=== PATIENT | female | born 1985 | race Two or more races ===

== ENCOUNTER 2017-08-04 10:37 | Emergency (ER) | payer MEDICAID ==
[2017-08-04] MEDS ORDERED: HYDROmorphone 0.5 MG/0.5 ML Syringe IVPUSH ONE (11:34)
[2017-08-04] MEDS ORDERED: Famotidine 20 MG/2 ML SDV IVPUSH ONE (11:34)
[2017-08-04] MEDS ORDERED: Ondansetron 4 MG/2 ML SDV IVPUSH ONE (11:34)
[2017-08-04] MEDS ORDERED: Sodium Chloride 0.9% 10 ML Syringe FLUSH PRN (11:34)
[2017-08-04] MEDS ORDERED: Sodium Chloride 0.9% 1,000 ML IV SCH (11:45)
--- NOTE | 2017-08-04 13:30 | EDM.PDOC ---
ED HPI GENERAL MEDICAL PROBLEM - General Chief Complaint: Abdominal Pain Stated Complaint: VOMITING AND DIARRHEA Time Seen by Provider: 08/04/17 11:27 Source of Information: Reports: Patient, RN Notes Reviewed - History of Present Illness INITIAL COMMENTS - FREE TEXT/NARRATIVE: Female with sudden onset nausea, vomiting, diarrhea, abdominal pain with a lot of upper abdominal cramping about 5-6 hours ago. She continues to be very nauseated and continues to have a lot of upper mid abdominal cramping without radiation. She did feel fine yesterday and last evening. She's had some chills but no fever. No chest pain or difficulty breathing. She still does have her appendix and gallbladder. 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 Denies: Hematochezia Musculoskeletal: Reports: No Symptoms Skin: Reports: No Symptoms Neurological: Reports: Dizziness (Mild) ED EXAM, GI/ABD - Physical Exam Exam: See Below General Appearance: Alert, Moderate Distress Throat/Mouth: Normal Inspection, Normal Oropharynx Head: No: Facial Swelling Neck: Supple, Full Range of Motion Respiratory/Chest: No Respiratory Distress, Lungs Clear, Normal Breath Sounds Cardiovascular: Regular Rate, Rhythm GI/Abdominal Exam: Soft, Tender (Upper mid abdomen, lower abdomen nontender, right upper quadrant nontender). No: Guarding Back Exam: No: CVA Tenderness (L), CVA Tenderness (R) Extremities: Normal Inspection, Normal Range of Motion Neurological: Alert, Oriented, No Motor/Sensory Deficits Skin Exam: Warm, Dry, Normal Color Course - Vital Signs Last Recorded V/S: Last Vital Signs Temp 96.7 F 08/04/17 10:55 Pulse 84 08/04/17 10:55 Resp 18 08/04/17 10:55 BP 130/82 08/04/17 10:55 Pulse Ox 99 08/04/17 10:55 - Orders/Labs/Meds Orders: Active Orders 24 hr Category Date Time Status Peripheral IV Care [RC] . DIRECTED Care 08/04/17 11:35 Active Peripheral IV Insertion Adult [OM.PC] Stat Oth 08/04/17 11:34 Ordered Labs: Laboratory Tests 08/04/17 Range/Units 11:19 WBC 7.91 (3.98-10.04) K/mm3 RBC 4.54 (3.98-5.22) M/mm3 Hgb 11.5 (11.2-15.7) gm/L Hct 36.7 (34.1-44.9) % MCV 80.8 (79.4-94.8) fl MCH 25.3 L (25.6-32.2) pg MCHC 31.3 L (32.2-35.5) g/dl RDW Std Deviation 45.6 (36.4-46.3) fL Plt Count 366 (182-369) K/mm3 MPV 12.3 (9.4-12.3) fl Neut % (Auto) 79.8 H (34.0-71.1) % Lymph % (Auto) 14.5 L (19.3-51.7) % [place] % (Auto) 4.6 L (4.7-12.5) % Eos % (Auto) 0.5 L (0.7-5.8) Baso % (Auto) 0.3 (0.1-1.2) % Neut # (Auto) 6.32 H (1.56-6.13) K/mm3 Lymph # (Auto) 1.15 L (1.18-3.74) K/mm3 [place] # (Auto) 0.36 (0.24-0.36) K/mm3 Eos # (Auto) 0.04 (0.04-0.36) K/mm3 Baso # (Auto) 0.02 (0.01-0.08) K/mm3 Meds: Medications Discontinued Medications Generic Name Dose Route Start Last Admin Trade Name Freq PRN Reason Stop Dose Admin Famotidine 20 mg 08/04/17 11:34 08/04/17 11:48 Pepcid IVPUSH 08/04/17 11:35 20 mg ONETIME ONE Administration Hydromorphone HCl 0.5 mg 08/04/17 11:34 08/04/17 11:50 Dilaudid IVPUSH 08/04/17 11:35 0.5 mg ONETIME ONE Administration Sodium Chloride 1,000 mls @ 999 mls/hr 08/04/17 11:45 08/04/17 11:45 Normal Saline IV 999 mls/hr ONETIME ANGELA Administration Ondansetron HCl 4 mg 08/04/17 11:34 08/04/17 11:46 Zofran IVPUSH 08/04/17 11:35 4 mg ONETIME ONE Administration Sodium Chloride 10 ml 08/04/17 11:34 08/04/17 11:51 Saline Flush FLUSH 10 ml ASDIRECTED PRN Administration Keep Vein Open - Re-Assessments/Exams Free Text/Narrative Re-Assessment/Exam: 08/04/17 14:38 White blood count is normal. Feeling much better after 1 L of normal saline, IV Zofran and Pepcid. Departure - Departure Time of Disposition: 13:27 Disposition: Home, Self-Care 01 Condition: Fair Clinical Impression: Abdominal pain Qualifiers: Abdominal location: generalized Qualified Code(s): R10.84 - Generalized abdominal pain Diarrhea Qualifiers: Diarrhea type: unspecified type Qualified Code(s): R19.7 - Diarrhea, unspecified Vomiting Qualifiers: Vomiting type: unspecified Vomiting Intractability: non-intractable Nausea presence: with nausea Qualified Code(s): R11.2 - Nausea with vomiting, unspecified - Discharge Information Prescriptions: Ondansetron [Zofran ODT] 4 mg PO Q6H PRN #7 tab.dis PRN Reason: Nausea/Vomiting Instructions: Diarrhea, Adult, Nausea and Vomiting, Adult, [id number], Abdominal Pain, Adult, [id number] Referrals: Debra Baltazar, COMPRESSION MOLDING MACHINE SETTER [Primary Care Provider] - Forms: ED Department Discharge, ED Return to Work/School Form Additional Instructions: Clear liquids only until late this evening, then very careful bland diet slowly as tolerated, Zofran nausea medicine if needed for any further nausea or vomiting, tylenol if needed for pain. follow-up clinic if not much better within 1-2 days as expected. - My Orders Last 24 Hours: My Active Orders 08/04/17 11:34 Peripheral IV Insertion Adult [OM.PC] Stat 08/04/17 11:35 Peripheral IV Care [RC] . DIRECTED - Assessment/Plan Last 24 Hours: My Active Orders 08/04/17 11:34 Peripheral IV Insertion Adult [OM.PC] Stat 08/04/17 11:35 Peripheral IV Care [RC] . DIRECTED
== END 2017-08-04 13:45 | disposition home or self-care (01) ==
LOC: JD.ED 10:37
DX: R10.10 Upper abdominal pain, unspecified (principal); R11.2 Nausea with vomiting, unspecified; R19.7 Diarrhea, unspecified
CPT/HCPCS: 36415; 85025; 96361; 96374; 96375; 99284; J1170; J2405; J7040; J7050

== ENCOUNTER 2021-03-04 19:13 | Emergency (ER) | payer BC, MEDICAID ==
[2021-03-04] MEDS ORDERED: Sodium Chloride 0.9% 10 ML Syringe FLUSH PRN (19:25)
--- NOTE | 2021-03-04 19:36 | EDM.PDOC ---
ED HPI GENERAL MEDICAL PROBLEM - General Chief Complaint: Chest Pain Stated Complaint: CHEST PAIN Time Seen by Provider: 03/04/21 19:24 Source of Information: Reports: Patient, RN Notes Reviewed History Limitations: Reports: No Limitations - History of Present Illness INITIAL COMMENTS - FREE TEXT/NARRATIVE: Patient is a 35-year-old female who presents to the ER for the evaluation of her left-sided chest pain. Patient states that this started roughly 5 hours prior to arrival to the ER, she states that the pain is very sharp and stabbing in nature, in her left mid chest, and doesn't seem to be getting much better. She states that it does seem to be worsened by breathing, and movement, and palpation. She took 2 baby aspirin at home for pain management. States that she has a history of atrial fibrillation, roughly 15 years ago, but this has since resolved and she is not on any medications for this. She denies any other cardiac history, pulmonary history, or other medical issues. She states she has not been sick recently, she has had no fevers or chills, cough or shortness of breath, nausea/vomiting/diarrhea. 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 ED EXAM, GENERAL - Physical Exam Exam: See Below Exam Limited By: No Limitations General Appearance: Alert, WD/WN, No Apparent Distress Respiratory/Chest: No Respiratory Distress, Lungs Clear, Normal Breath Sounds, No Accessory Muscle Use, Other (Left chest is tender to palpation to about the 3-4th distribution of rib.) Cardiovascular: Normal Peripheral Pulses, Regular Rate, Rhythm, No Edema Extremities: Normal Inspection, Normal Capillary Refill Neurological: Alert, Oriented, Normal Cognition, No Motor/Sensory Deficits Psychiatric: Normal Affect, Normal Mood Skin Exam: Warm, Dry, Intact, Normal Color, No Rash #1 Interpretation EKG Date: 03/04/21 Time: 19:24 Rhythm: NSR Rate (Beats/Min): 83 [place]: Normal P-Wave: Present QRS: Normal ST-T: Normal QT: Normal Comparison: NA - No Prior EKG EKG Interpretation Comments: No obvious ischemia or acute ST changes noted, reviewed by myself and Dr. Olivas Course - Vital Signs Last Recorded V/S: Last Vital Signs Temp 97.6 F 03/04/21 19:23 Pulse 91 03/04/21 19:51 Resp 18 03/04/21 19:51 BP 112/73 03/04/21 19:51 Pulse Ox 97 03/04/21 19:51 - Orders/Labs/Meds Orders: Active Orders 24 hr Category Date Time Status Peripheral IV Care [RC] . DIRECTED Care 03/04/21 19:26 Active Sodium Chloride 0.9% [Saline Flush] Med 03/04/21 19:25 Active 10 ml FLUSH ASDIRECTED PRN Peripheral IV Insertion Adult [OM.PC] Stat Oth 03/04/21 19:26 Ordered Medication Orders Sodium Chloride (Sodium Chloride 0.9% 10 Ml Syringe) 10 ml FLUSH ASDIRECTED PRN PRN Reason: Keep Vein Open Labs: Laboratory Tests 03/04/21 03/04/21 03/04/21 Range/Units 19:41 19:41 19:41 WBC 5.49 (3.98-10.04) K/mm3 RBC 4.09 (3.98-5.22) M/mm3 Hgb 10.6 L (11.2-15.7) gm/dl Hct 33.6 L (34.1-44.9) % MCV 82.2 (79.4-94.8) fl MCH 25.9 (25.6-32.2) pg MCHC 31.5 L (32.2-35.5) g/dl RDW Std Deviation 45.2 (36.4-46.3) fL Plt Count 333 (182-369) K/mm3 MPV 11.9 (9.4-12.3) fl Neut % (Auto) 56.1 (34.0-71.1) % Lymph % (Auto) 32.6 (19.3-51.7) % [place] % (Auto) 9.1 (4.7-12.5) % Eos % (Auto) 1.6 (0.7-5.8) Baso % (Auto) 0.4 (0.1-1.2) % Neut # (Auto) 3.08 (1.56-6.13) K/mm3 Lymph # (Auto) 1.79 (1.18-3.74) K/mm3 [place] # (Auto) 0.50 H (0.24-0.36) K/mm3 Eos # (Auto) 0.09 (0.04-0.36) K/mm3 Baso # (Auto) 0.02 (0.01-0.08) K/mm3 PT 10.9 (9.7-12.0) SECONDS INR 1.02 APTT 25.4 (21.7-31.4) SECONDS D-Dimer, Quantitative 0.37 (0.19-0.50) mg/L Sodium 144 (136-145) mEq/L Potassium 3.5 (3.5-5.1) mEq/L Chloride 108 H (98-107) mEq/L Carbon Dioxide 25 (21-32) mEq/L Anion Gap 14.5 (5-15) BUN 11 (7-18) mg/dL Creatinine 0.9 (0.55-1.02) mg/dL Est Cr Clr Drug Dosing 69.66 mL/min Estimated GFR (MDRD) > 60 (>60) mL/min BUN/Creatinine Ratio 12.2 L (14-18) Glucose 114 H (70-99) mg/dL Calcium 8.3 L (8.5-10.1) mg/dL Magnesium 1.8 (1.8-2.4) mg/dL Total Bilirubin 0.2 (0.2-1.0) mg/dL AST 11 L (15-37) U/L ALT 14 (14-59) U/L Alkaline Phosphatase 59 (46-116) U/L Troponin I < 0.017 (0.00-0.056) ng/mL NT-Pro-B Natriuret Pep (0-125) pg/mL Total Protein 6.8 (6.4-8.2) g/dl Albumin 3.2 L (3.4-5.0) g/dl Globulin 3.6 gm/dL Albumin/Globulin Ratio 0.9 L (1-2) 03/04/21 Range/Units 19:41 WBC (3.98-10.04) K/mm3 RBC (3.98-5.22) M/mm3 Hgb (11.2-15.7) gm/dl Hct (34.1-44.9) % MCV (79.4-94.8) fl MCH (25.6-32.2) pg MCHC (32.2-35.5) g/dl RDW Std Deviation (36.4-46.3) fL Plt Count (182-369) K/mm3 MPV (9.4-12.3) fl Neut % (Auto) (34.0-71.1) % Lymph % (Auto) (19.3-51.7) % [place] % (Auto) (4.7-12.5) % Eos % (Auto) (0.7-5.8) Baso % (Auto) (0.1-1.2) % Neut # (Auto) (1.56-6.13) K/mm3 Lymph # (Auto) (1.18-3.74) K/mm3 [place] # (Auto) (0.24-0.36) K/mm3 Eos # (Auto) (0.04-0.36) K/mm3 Baso # (Auto) (0.01-0.08) K/mm3 PT (9.7-12.0) SECONDS INR APTT (21.7-31.4) SECONDS D-Dimer, Quantitative (0.19-0.50) mg/L Sodium (136-145) mEq/L Potassium (3.5-5.1) mEq/L Chloride (98-107) mEq/L Carbon Dioxide (21-32) mEq/L Anion Gap (5-15) BUN (7-18) mg/dL Creatinine (0.55-1.02) mg/dL Est Cr Clr Drug Dosing mL/min Estimated GFR (MDRD) (>60) mL/min BUN/Creatinine Ratio (14-18) Glucose (70-99) mg/dL Calcium (8.5-10.1) mg/dL Magnesium (1.8-2.4) mg/dL Total Bilirubin (0.2-1.0) mg/dL AST (15-37) U/L ALT (14-59) U/L Alkaline Phosphatase (46-116) U/L Troponin I (0.00-0.056) ng/mL NT-Pro-B Natriuret Pep 16 (0-125) pg/mL Total Protein (6.4-8.2) g/dl Albumin (3.4-5.0) g/dl Globulin gm/dL Albumin/Globulin Ratio (1-2) Meds: Medications Generic Name Dose Route Start Last Admin Trade Name Freq PRN Reason Stop Dose Admin Sodium Chloride 10 ml 03/04/21 19:25 Sodium Chloride 0.9% 10 Ml Syringe FLUSH ASDIRECTED PRN Keep Vein Open - Re-Assessments/Exams Free Text/Narrative Re-Assessment/Exam: 03/04/21 19:55 The patient presents to the ER for her left-sided chest pain. EKG done at time of triage demonstrates normal sinus rhythm with no acute ST change or abnormalities. Basic labs will be obtained for evaluation, along with a chest x-ray. 03/04/21 20:39 Laboratory evaluation is unremarkable, troponin is undetectably low, D-dimer is within normal limits, she is not suffering from a heart attack, nor does she have a PE at today's visit by lab standards. Likely that her pain could be musculoskeletal, we will give her a prescription for Norflex if she would choose , and tell her to try to utilize ibuprofen as well for ongoing management. Patient's chest x-ray was also without acute findings. Departure - Departure Time of Disposition: 20:40 Disposition: Home, Self-Care 01 Condition: Good Clinical Impression: Left-sided chest wall pain Instructions: Chest Wall Pain, [id number] Referrals: PCP,None [Primary Care Provider] - Forms: ED Department Discharge Additional Instructions: You were evaluated in the ER today for your chest pain. Your EKG, chest x-ray, and laboratory evaluation are all unremarkable. The chest pain is thought likely due to musculoskeletal etiology. Recommend you use daily 600 mg ibuprofen every 6 hours for ongoing chest pain management. Do not exceed more than 3200 mg ibuprofen in a 24-hour time span. Please follow-up with your regular provider for ongoing management of your health. Please return to the ER at any time if symptoms change or worsen. Sepsis Event Note (ED) - Evaluation Sepsis Screening Result: No Definite Risk - Focused Exam Vital Signs: Vital Signs Temp Pulse Resp BP Pulse Ox 03/04/21 19:51 91 18 112/73 97 03/04/21 19:23 97.6 F 92 18 124/83 96 - My Orders Last 24 Hours: My Active Orders 03/04/21 19:25 Sodium Chloride 0.9% [Saline Flush] 10 ml FLUSH ASDIRECTED PRN 03/04/21 19:26 Peripheral IV Care [RC] . DIRECTED Peripheral IV Insertion Adult [OM.PC] Stat - Assessment/Plan Last 24 Hours: My Active Orders 03/04/21 19:25 Sodium Chloride 0.9% [Saline Flush] 10 ml FLUSH ASDIRECTED PRN 03/04/21 19:26 Peripheral IV Care [RC] . DIRECTED Peripheral IV Insertion Adult [OM.PC] Stat
--- NOTE | 2021-03-04 20:04 | CR ---
Chest: Portable view of the chest was obtained. Comparison: No prior chest imaging is available. Heart size and mediastinum are normal. Lungs are clear with no acute parenchymal change. Bony structure shows nothing acute. Impression: 1. Nothing acute is appreciated on portable chest x-ray. Diagnostic code #1
== END 2021-03-04 20:55 | disposition home or self-care (01) ==
LOC: JD.ED 19:13
DX: R07.89 Other chest pain (principal); I48.91 Unspecified atrial fibrillation
CPT/HCPCS: 36415; 71045; 71045-26; 80053; 83735; 83880; 84484; 85025; 85379; 85610; 85730; 93005; 93010; 99283; 99285-25

== ENCOUNTER 2021-06-05 00:01 | Day surgery (SDC) | payer BC, MEDICAID ==
[2021-06-05] MEDS ORDERED: HYDROmorphone 0.5 MG/0.5 ML Syringe IVPUSH ONE (02:46)
[2021-06-05] MEDS ORDERED: Ondansetron 4 MG/2 ML SDV IVPUSH ONE (02:46)
--- NOTE | 2021-06-05 02:49 | EDM.PDOC ---
ED HPI GENERAL MEDICAL PROBLEM - General Chief Complaint: Abdominal Pain Stated Complaint: BACK/ABD PAIN Time Seen by Provider: 06/05/21 02:23 Source of Information: Reports: Patient History Limitations: Reports: No Limitations - History of Present Illness INITIAL COMMENTS - FREE TEXT/NARRATIVE: Ms. Bazan is a very pleasant 36-year-old woman who now presents the ED stating that she developed sudden-onset upper right and mid back pain around 2100 last night. She laid down, and the pain radiated to her right upper quadrant. She states that her pain is made better if she moves. She has not had any vomiting. No prior similar symptoms. The patient did not take any [id number] or home remedies prior to coming to the ED. The patient states that she ate dinner, consisting of a chicken [employer] sandwich around 18:00, then some dessert around 20:00. She has not had anything to eat since. Here in the ED, the patient's initial BP was found to be slightly elevated at 124/101, otherwise, she is hemodynamically stable, afebrile, saturating 100% on room air. She appears to be comfortable, in no acute distress, although she states that her pain has not significantly improved since its onset. Prior to last night, the patient denies having a recent fever, chills, sore throat, ear pain, nasal or sinus congestion, cough, dyspnea, chest pain, palpitations, nausea, vomiting, constipation, diarrhea, abdominal pain, urinary symptoms, recent weight gain or weight loss, recent bloody bowel movements or black bowel movements, recent joint aches, headaches, or rashes. The patient does not have a PCP. 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 Dayami Stoner. She has received 2 COVID vaccinations, although no influenza vaccination this season. Right Upper Abdomen Pain Score (Numeric/FACES): 7 - Related Data Allergies Allergy/AdvReac Type Severity Reaction Status Date / Time No Known Allergies Allergy Verified 06/05/21 00:10 Home Meds: Home Meds oxyCODONE 5 mg PO Q4H PRN #15 tab 06/05/21 [Rx] Past Medical History - Past Health History Medical/Surgical History: Denies Medical/Surgical History - Infectious Disease History Infectious Disease History: Reports: Chicken Pox Social & Family History - Tobacco Use Tobacco Use Status *Q: Never Tobacco User Second Hand Smoke Exposure: No - Caffeine Use Caffeine Use: Reports: Coffee - Alcohol Use Alcohol Use History: Yes Alcohol Use Frequency: Socially - Recreational Drug Use Recreational Drug Use: No - Living Situation & Occupation Living situation: Reports: Single, with Family 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 ED EXAM, GI/ABD - Physical Exam Exam: See Below Exam Limited By: No Limitations General Appearance: Alert, WD/WN, No Apparent Distress Eyes: Bilateral: Normal Appearance, EOMI Ears: Normal External Exam, Hearing Grossly Normal Nose: Normal Inspection Throat/Mouth: Normal Inspection, Normal Lips, Normal Voice, No Airway Compromise Head: Atraumatic, Normocephalic Neck: Normal Inspection, Full Range of Motion Respiratory/Chest: No Respiratory Distress, Lungs Clear, Normal Breath Sounds, No Accessory Muscle Use Cardiovascular: Normal Peripheral Pulses, Regular Rate, Rhythm, No Edema, No Gallop, No JVD, No Murmur, No Rub GI/Abdominal Exam: Normal Bowel Sounds, Soft, No Organomegaly, No Distention, No Abnormal Bruit, No Mass, Tender (Considerable, right upper quadrant only. Nontender elsewhere. True Cortez sign present.) Back Exam: Normal Inspection, Full Range of Motion. No: CVA Tenderness (L), CVA Tenderness (R) Extremities: Normal Inspection, Normal Range of Motion, No Pedal Edema, Normal Capillary Refill Neurological: Alert, Oriented, Normal Cognition, No Motor/Sensory Deficits Psychiatric: Normal Affect Skin Exam: Warm, Dry, Intact, Normal Color, No Rash Course - Vital Signs Last Recorded V/S: Last Vital Signs Temp 36.1 C 06/05/21 00:08 Pulse 85 06/05/21 00:08 Resp 16 06/05/21 00:08 BP 124/101 H 06/05/21 00:08 Pulse Ox 100 06/05/21 00:08 - Orders/Labs/Meds Orders: Active Orders 24 hr Category Date Time Status Sodium Chloride 0.9% [Normal Saline] 1,000 ml Med 06/05/21 03:00 Active IV ASDIRECTED Medication Orders Sodium Chloride (Normal Saline) 1,000 mls @ 150 mls/hr IV ASDIRECTED ANGELA Last Admin: 06/05/21 02:53 Dose: 150 mls/hr Documented by: PRATEEK Labs: Laboratory Tests 06/05/21 06/05/21 06/05/21 Range/Units 01:05 01:05 02:59 WBC 6.99 (3.98-10.04) K/mm3 RBC 4.05 (3.98-5.22) M/mm3 Hgb 10.3 L (11.2-15.7) gm/dl Hct 33.8 L (34.1-44.9) % MCV 83.5 (79.4-94.8) fl MCH 25.4 L (25.6-32.2) pg MCHC 30.5 L (32.2-35.5) g/dl RDW Std Deviation 46.0 (36.4-46.3) fL Plt Count 369 (182-369) K/mm3 MPV 11.4 (9.4-12.3) fl Neut % (Auto) 66.1 (34.0-71.1) % Lymph % (Auto) 24.6 (19.3-51.7) % [place] % (Auto) 6.9 (4.7-12.5) % Eos % (Auto) 1.7 (0.7-5.8) Baso % (Auto) 0.4 (0.1-1.2) % Neut # (Auto) 4.62 (1.56-6.13) K/mm3 Lymph # (Auto) 1.72 (1.18-3.74) K/mm3 [place] # (Auto) 0.48 H (0.24-0.36) K/mm3 Eos # (Auto) 0.12 (0.04-0.36) K/mm3 Baso # (Auto) 0.03 (0.01-0.08) K/mm3 Sodium 140 (136-145) mEq/L Potassium 3.7 (3.5-5.1) mEq/L Chloride 106 (98-107) mEq/L Carbon Dioxide 27 (21-32) mEq/L Anion Gap 10.7 (5-15) BUN 14 (7-18) mg/dL Creatinine 0.8 (0.55-1.02) mg/dL Est Cr Clr Drug Dosing TNP Estimated GFR (MDRD) > 60 (>60) mL/min BUN/Creatinine Ratio 17.5 (14-18) Glucose 96 (70-99) mg/dL Calcium 8.9 (8.5-10.1) mg/dL Total Bilirubin 0.1 L (0.2-1.0) mg/dL AST 17 (15-37) U/L ALT 10 L (14-59) U/L Alkaline Phosphatase 74 (46-116) U/L Total Protein 6.3 L (6.4-8.2) g/dl Albumin 3.0 L (3.4-5.0) g/dl Globulin 3.3 gm/dL Albumin/Globulin Ratio 0.9 L (1-2) Lipase 96 (73-393) U/L SARS-CoV-2 RNA (VALERIA) Negative (NEGATIVE) Meds: Medications Generic Name Dose Route Start Last Admin Trade Name Freq PRN Reason Stop Dose Admin Sodium Chloride 1,000 mls @ 150 mls/hr 06/05/21 03:00 06/05/21 02:53 Normal Saline IV 150 mls/hr ASDIRECTED ANGELA Administration Discontinued Medications Generic Name Dose Route Start Last Admin Trade Name Freq PRN Reason Stop Dose Admin Hydromorphone HCl 0.5 mg 06/05/21 02:46 06/05/21 02:53 Hydromorphone 0.5 Mg/0.5 Ml Syringe IVPUSH 06/05/21 02:47 0.5 mg ONETIME ONE Administration Ceftriaxone Sodium 1 gm/ 100 mls @ 200 mls/hr 06/05/21 06:02 06/05/21 06:11 Sodium Chloride IV 06/05/21 06:31 200 mls/hr ONETIME STA Administration Ondansetron HCl 4 mg 06/05/21 02:46 06/05/21 02:53 Ondansetron 4 Mg/2 Ml Sdv IVPUSH 06/05/21 02:47 4 mg ONETIME ONE Administration - Re-Assessments/Exams Free Text/Narrative Re-Assessment/Exam: 06/05/21 02:47 The patient's history and physical examination are entirely consistent with acute cholecystitis. A CBC, CMP, and lipase level were obtained at triage. I have ordered an ultrasound of the right upper quadrant, to be followed by a CT of the abdomen and pelvis with oral and IV contrast. In the event that she needs to go to the OR, I have also added a swab for the SARS-CoV-2 virus. In the meantime, the patient will be treated with IV Dilaudid, IV Zofran, and IV fluid. The patient's CBC is remarkable for an H/H slightly depressed at 10.3/33.8, with the remainder of her CBC being unremarkable. Her CMP is unremarkable. Her lipase level is within normal limits at 96. 06/05/21 04:41 Ultrasound of the right upper quadrant is read by [facility] as "Cholelithiasis without cholecystitis. 1.4 cm stone lodged in the neck of the gallbladder." The patient's swab for the SARS-CoV-2 virus is negative. 06/05/21 05:14 CT of the abdomen and pelvis with oral and IV contrast is read by [facility] as "There is mild pericholecystic edema, suspicious for cholecystitis. Gallstone is not identified on this examination and is likely radiolucent." 06/05/21 05:23 Test results discussed with the patient. As above, the patient has cholecystitis due to cholelithiasis. She will need to undergo a cholecystectomy, however, no beds are currently available at this facility. A bed may open up later today. My plan is to contact Dr. Torres around 06:00 to see if you would like to proceed with same-day surgery, or if we need to look to transfer her. I do not believe that she needs emergent antibiotics, although I will ask him at 06:00. The patient declined an offer for additional pain medication at this time. 06/05/21 06:[address] Torres at 06:00. He will come by the ED to evaluate the patient this morning, with the hope of being able to take her to the operating room today. In the meantime, he requested that I give the patient IV Rocephin. 06/05/21 08:[address] Torres is evaluating the patient at this time. Departure - Departure Time of Disposition: 09:15 Disposition: DC/Tfer to [facility] Clinical Impression: Acute cholecystitis - Discharge Information *PRESCRIPTION DRUG MONITORING PROGRAM REVIEWED*: Not Applicable *COPY OF PRESCRIPTION DRUG MONITORING REPORT IN PATIENT FERNANDO: Not Applicable Sepsis Event Note (ED) - Evaluation Sepsis Screening Result: No Definite Risk - Focused Exam Vital Signs: Vital Signs Temp Pulse Resp BP Pulse Ox 06/05/21 00:08 36.1 C 85 16 124/101 H 100 - My Orders Last 24 Hours: My Active Orders 06/05/21 03:00 Sodium Chloride 0.9% [Normal Saline] 1,000 ml IV ASDIRECTED - Assessment/Plan Last 24 Hours: My Active Orders 06/05/21 03:00 Sodium Chloride 0.9% [Normal Saline] 1,000 ml IV ASDIRECTED
[2021-06-05] MEDS ORDERED: Sodium Chloride 0.9% 1,000 ML IV SCH (03:00)
[2021-06-05] MEDS ORDERED: cefTRIAXone 1 GM in Sodium Chloride 0.9% 100 ML IV STA (06:02)
--- NOTE | 2021-06-05 07:18 | US ---
Limited abdominal ultrasound: Multiple real-time images were obtained of the upper right abdomen. Comparison: No prior abdominal imaging is available. Findings: Liver shows no focal abnormality. Visualized portions of the pancreas are within normal limits. Gallbladder contains a single large gallstone within the gallbladder neck measuring 2.2 cm. Gallbladder wall is slightly prominent. Common bile duct measures at the upper limits of normal at 7.0 cm. Right kidney shows no hydronephrosis or mass and has a length of 11.5 cm. Main portal vein shows normal hepatopedal flow. Impression: 1. Single 2.2 cm gallstone within the gallbladder neck. Gallbladder wall is slightly prominent. Common bile duct measures at the upper limits of normal at 7 mm. Please correlate if patient has symptoms of acute cholecystitis. 2. Other portions of the right upper quadrant abdominal ultrasound are unremarkable. 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
--- NOTE | 2021-06-05 07:21 | CT ---
CT abdomen and pelvis Technique: Multiple axial sections were obtained from above the dome of the diaphragm inferiorly to the pubic symphysis. Intravenous and oral contrast was utilized. Delayed images were obtained through the bladder. Reconstructed coronal and sagittal images were obtained. Comparison: Limited abdominal ultrasound performed earlier on the same day (4:00 AM). Findings: Visualized lung bases show nothing acute. Liver shows no focal abnormality. Gallbladder does not show previous gallstone on this exam. Questionable fluid around the gallbladder is possible. Spleen size is normal. Adrenal glands show no nodule. Pancreas is within normal limits. Kidneys show symmetric contrast enhancement without hydronephrosis or mass. Abdominal aorta shows no aneurysm. No retroperitoneal adenopathy or mesenteric abnormalities are seen. Appendix is seen which is normal. No pelvic mass or adenopathy is seen. Delayed images show contrast within the distal ureters and within the bladder. No free fluid or inflammatory change is seen. Bone window settings were reviewed which show moderate disc space narrowing at L2-3 with anterior osteophytes. Scoliosis is also noted within the spine. No acute osseous finding is seen. Impression: 1. Possible fluid around the gallbladder. Given ultrasound findings, findings are suspicious for acute cholecystitis if patient has correlating symptoms. 2. Other findings believed to be chronic as described above. Diagnostic code #3 I agree with preliminary report from [facility], finalized on 06/05/21, 6:03 AM RN REHAB, code 2
--- NOTE | 2021-06-05 08:36 | PCM.PREANE ---
Preanesthetic Assessment - Procedure Proposed Procedure: Laparoscopic Cholecystectomy - Anesthesia/Transfusion/Family Hx Anesthesia History: Prior Anesthesia Without Reaction Family History of Anesthesia Reaction: No Transfusion History: No Prior Transfusion(s) Intubation History: Unknown - Review of Systems General: No Symptoms Pulmonary: No Symptoms Cardiovascular: No Symptoms Gastrointestinal: No Symptoms (GERD with gall bladder disease), Diarrhea (with oral contrast) Neurological: No Symptoms Other: Reports: Depression, Anxiety - Physical Assessment NPO Status Date: 06/05/21 NPO Status Time: 03:00 (oral contrast) Vital Signs: Last Vital Signs Temp 36.1 C 06/05/21 00:08 Pulse 85 06/05/21 00:08 Resp 16 06/05/21 00:08 BP 124/101 H 06/05/21 00:08 Pulse Ox 100 06/05/21 00:08 Height: 1.57 m Weight: 90.718 kg ASA Class: 3 Mental Status: Alert & Oriented x3 Airway Class: Mallampati = 2 Dentition: Reports: Normal Dentition, Caries Thyro-Mental Finger Breadths: 3 Mouth Opening Finger Breadths: 3 ROM/Head Extension: Full Lungs: Clear to Auscultation, Normal Respiratory Effort Cardiovascular: Regular Rate, Regular Rhythm, No Murmurs - Lab Values: Laboratory Last Values WBC 6.99 K/mm3 (3.98-10.04) 06/05/21 01:05 RBC 4.05 M/mm3 (3.98-5.22) 06/05/21 01:05 Hgb 10.3 gm/dl (11.2-15.7) L 06/05/21 01:05 Hct 33.8 % (34.1-44.9) L 06/05/21 01:05 MCV 83.5 fl (79.4-94.8) 06/05/21 01:05 MCH 25.4 pg (25.6-32.2) L 06/05/21 01:05 MCHC 30.5 g/dl (32.2-35.5) L 06/05/21 01:05 RDW Std Deviation 46.0 fL (36.4-46.3) 06/05/21 01:05 Plt Count 369 K/mm3 (182-369) 06/05/21 01:05 MPV 11.4 fl (9.4-12.3) 06/05/21 01:05 Neut % (Auto) 66.1 % (34.0-71.1) 06/05/21 01:05 Lymph % (Auto) 24.6 % (19.3-51.7) 06/05/21 01:05 [place] % (Auto) 6.9 % (4.7-12.5) 06/05/21 01:05 Eos % (Auto) 1.7 (0.7-5.8) 06/05/21 01:05 Baso % (Auto) 0.4 % (0.1-1.2) 06/05/21 01:05 Neut # (Auto) 4.62 K/mm3 (1.56-6.13) 06/05/21 01:05 Lymph # (Auto) 1.72 K/mm3 (1.18-3.74) 06/05/21 01:05 [place] # (Auto) 0.48 K/mm3 (0.24-0.36) H 06/05/21 01:05 Eos # (Auto) 0.12 K/mm3 (0.04-0.36) 06/05/21 01:05 Baso # (Auto) 0.03 K/mm3 (0.01-0.08) 06/05/21 01:05 Sodium 140 mEq/L (136-145) 06/05/21 01:05 Potassium 3.7 mEq/L (3.5-5.1) 06/05/21 01:05 Chloride 106 mEq/L (98-107) 06/05/21 01:05 Carbon Dioxide 27 mEq/L (21-32) 06/05/21 01:05 Anion Gap 10.7 (5-15) 06/05/21 01:05 BUN 14 mg/dL (7-18) 06/05/21 01:05 Creatinine 0.8 mg/dL (0.55-1.02) 06/05/21 01:05 Est Cr Clr Drug Dosing TNP 06/05/21 01:05 Estimated GFR (MDRD) > 60 mL/min (>60) 06/05/21 01:05 BUN/Creatinine Ratio 17.5 (14-18) 06/05/21 01:05 Glucose 96 mg/dL (70-99) 06/05/21 01:05 Calcium 8.9 mg/dL (8.5-10.1) 06/05/21 01:05 Total Bilirubin 0.1 mg/dL (0.2-1.0) L 06/05/21 01:05 AST 17 U/L (15-37) 06/05/21 01:05 ALT 10 U/L (14-59) L 06/05/21 01:05 Alkaline Phosphatase 74 U/L (46-116) 06/05/21 01:05 Total Protein 6.3 g/dl (6.4-8.2) L 06/05/21 01:05 Albumin 3.0 g/dl (3.4-5.0) L 06/05/21 01:05 Globulin 3.3 gm/dL 06/05/21 01:05 Albumin/Globulin Ratio 0.9 (1-2) L 06/05/21 01:05 Lipase 96 U/L (73-393) 06/05/21 01:05 SARS-CoV-2 RNA (VALERIA) Negative (NEGATIVE) 06/05/21 02:59 Above labs reviewed and noted and within acceptable ranges to proceed with scheduled procedure. - Imaging/EKG Impressions: EKG: SR rate=83 CXR: negative - Allergies Allergies/Adverse Reactions: Allergies Allergy/AdvReac Type Severity Reaction Status Date / Time No Known Allergies Allergy Verified 06/05/21 00:10 - Anesthesia Plan Pre-Op Medication Ordered: None - Acknowledgements Anesthesia Type Planned: General Anesthesia Pt an Appropriate Candidate for the Planned Anesthesia: Yes Alternatives and Risks of Anesthesia Discussed w Pt/Guardian: Yes Pt/Guardian Understands and Agrees with Anesthesia Plan: Yes PreAnesthesia Questionnaire - Past Health History Medical/Surgical History: Denies Medical/Surgical History Cardiovascular History: Reports: Afib Respiratory History: Reports: Asthma 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 [No Known Home Meds] 06/05/21 [History] - CURRENT (IN HOUSE) MEDS Current Meds: Current Medications Sodium Chloride (Normal Saline) 1,000 mls @ 150 mls/hr IV ASDIRECTED ANGELA Last Admin: 06/05/21 02:53 Dose: 150 mls/hr Documented by: Discontinued Medications Hydromorphone HCl (Hydromorphone 0.5 Mg/0.5 Ml Syringe) 0.5 mg IVPUSH ONETIME ONE Stop: 06/05/21 02:47 Last Admin: 06/05/21 02:53 Dose: 0.5 mg Documented by: Ceftriaxone Sodium 1 gm/ (Sodium Chloride) 100 mls @ 200 mls/hr IV ONETIME STA Stop: 06/05/21 06:31 Last Admin: 06/05/21 06:11 Dose: 200 mls/hr Documented by: Ondansetron HCl (Ondansetron 4 Mg/2 Ml Sdv) 4 mg IVPUSH ONETIME ONE Stop: 06/05/21 02:47 Last Admin: 06/05/21 02:53 Dose: 4 mg Documented by:
--- NOTE | 2021-06-05 09:32 | PCM.HP.2 ---
H&P History of Present Illness - General Date of Service: 06/05/21 Admit Problem/Dx: acute cholecystitis Source of Information: Patient History Limitations: Reports: No Limitations - History of Present Illness Initial Comments - Free Text/Narative: The patient is a 36-year-old woman presenting with abdominal pain which began last evening. The pain is localized to the right upper quadrant and radiates to the back. She has had similar milder pain like this episodically over the course of the past month. Last night the pain was significantly worse and lasted several hours. She still has some mild pain this morning. Ultrasound of the abdomen and CT scan were obtained overnight with evidence of a large gallstone and minor gallbladder wall thickening and pericholecystic fluid suggestive of cholecystitis. LFTs are normal and white count is normal. The patient denies any medical problems or past surgical history, and takes no medications regularly. Right Upper Abdomen Pain Score (Numeric/FACES): 7 - Related Data Allergies/Adverse Reactions: Allergies Allergy/AdvReac Type Severity Reaction Status Date / Time No Known Allergies Allergy Verified 06/05/21 00:10 Home Medications: Home Meds . 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 - Infectious Disease History Infectious Disease History: Reports: Chicken Pox Social & Family History - Family History Family Medical History: No Pertinent Family History - Tobacco Use Tobacco Use Status *Q: Never Tobacco User Second Hand Smoke Exposure: No - Caffeine Use Caffeine Use: Reports: Coffee - Recreational Drug Use Recreational Drug Use: No - Living Situation & Occupation Living situation: Reports: Single, with Family 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) H&P Review of Systems - Review of Systems: Review Of Systems: See Below General: Reports: No Symptoms HEENT: Reports: No Symptoms Pulmonary: Reports: No Symptoms Cardiovascular: Reports: No Symptoms Gastrointestinal: Reports: Abdominal Pain Genitourinary: Reports: No Symptoms Musculoskeletal: Reports: No Symptoms Skin: Reports: No Symptoms Neurological: Reports: No Symptoms Hematologic/Lymphatic: Reports: No Symptoms Immunologic: Reports: No Symptoms Exam - Exam Exam: See Below - Vital Signs Vital Signs: Last Vital Signs Temp 36.1 C 06/05/21 00:08 Pulse 85 06/05/21 00:08 Resp 16 06/05/21 00:08 BP 124/101 H 06/05/21 00:08 Pulse Ox 100 06/05/21 00:08 Weight: 90.718 kg - Exam General: Alert, Oriented, Cooperative HEENT: Conjunctiva Clear Neck: Supple, Trachea Midline Lungs: Normal Respiratory Effort Cardiovascular: Regular Rate GI/Abdominal Exam: Soft, Other (minor RUQ tenderness on deep palpation, no palpable mass) Extremities: Normal Inspection Skin: Warm, Dry Neuro Extensive - Mental Status: Alert, Oriented x3 Psychiatric: Normal Mood - Patient Data Lab Results Last 24 hrs: Laboratory Results - last 24 hr 06/05/21 06/05/21 06/05/21 Range/Units 01:05 01:05 02:59 WBC 6.99 (3.98-10.04) K/mm3 RBC 4.05 (3.98-5.22) M/mm3 Hgb 10.3 L (11.2-15.7) gm/dl Hct 33.8 L (34.1-44.9) % MCV 83.5 (79.4-94.8) fl MCH 25.4 L (25.6-32.2) pg MCHC 30.5 L (32.2-35.5) g/dl RDW Std Deviation 46.0 (36.4-46.3) fL Plt Count 369 (182-369) K/mm3 MPV 11.4 (9.4-12.3) fl Neut % (Auto) 66.1 (34.0-71.1) % Lymph % (Auto) 24.6 (19.3-51.7) % [place] % (Auto) 6.9 (4.7-12.5) % Eos % (Auto) 1.7 (0.7-5.8) Baso % (Auto) 0.4 (0.1-1.2) % Neut # (Auto) 4.62 (1.56-6.13) K/mm3 Lymph # (Auto) 1.72 (1.18-3.74) K/mm3 [place] # (Auto) 0.48 H (0.24-0.36) K/mm3 Eos # (Auto) 0.12 (0.04-0.36) K/mm3 Baso # (Auto) 0.03 (0.01-0.08) K/mm3 Sodium 140 (136-145) mEq/L Potassium 3.7 (3.5-5.1) mEq/L Chloride 106 (98-107) mEq/L Carbon Dioxide 27 (21-32) mEq/L Anion Gap 10.7 (5-15) BUN 14 (7-18) mg/dL Creatinine 0.8 (0.55-1.02) mg/dL Est Cr Clr Drug Dosing TNP Estimated GFR (MDRD) > 60 (>60) mL/min BUN/Creatinine Ratio 17.5 (14-18) Glucose 96 (70-99) mg/dL Calcium 8.9 (8.5-10.1) mg/dL Total Bilirubin 0.1 L (0.2-1.0) mg/dL AST 17 (15-37) U/L ALT 10 L (14-59) U/L Alkaline Phosphatase 74 (46-116) U/L Total Protein 6.3 L (6.4-8.2) g/dl Albumin 3.0 L (3.4-5.0) g/dl Globulin 3.3 gm/dL Albumin/Globulin Ratio 0.9 L (1-2) Lipase 96 (73-393) U/L SARS-CoV-2 RNA (VALERIA) Negative (NEGATIVE) Result Diagrams: 06/05/21 01:05 06/05/21 01:05 Sepsis Event Note - Evaluation Sepsis Screening Result: No Definite Risk - Focused Exam Vital Signs: Vital Signs Temp Pulse Resp BP Pulse Ox 06/05/21 00:08 36.1 C 85 16 124/101 H 100 Problem List Initiated/Reviewed/Updated: Yes Orders Last 24hrs: Active Orders 24 hr Category Date Time Status NPO Now [Nothing per Oral Now Diet] [DIET] Diet 06/05/21 Lunch Ordered HCG QUALITATIVE,URINE [URCHEM] Stat Lab 06/05/21 09:28 Ordered Sodium Chloride 0.9% [Normal Saline] 1,000 ml Med 06/05/21 03:00 Active IV ASDIRECTED Schedule Procedure [COMM] Routine Oth 06/05/21 09:27 Ordered Medication Orders Sodium Chloride (Normal Saline) 1,000 mls @ 150 mls/hr IV ASDIRECTED ANGELA Last Admin: 06/05/21 02:53 Dose: 150 mls/hr Documented by: PRATEEK Assessment/Plan Comment:: Acute calculous cholecystitis- plan for laparoscopic cholecystectomy. - Mortality Measure Prognosis:: Good
[2021-06-05] MEDS ORDERED: Lactated Ringers 1,000 ML ONE ×2 (09:33→10:50)
[2021-06-05] MEDS ORDERED: Propofol 200 MG/20 ML SDV ONE (09:41)
[2021-06-05] MEDS ORDERED: Ondansetron 4 MG/2 ML SDV ONE ×2 (09:41→14:08)
[2021-06-05] MEDS ORDERED: Rocuronium 50 MG/5 ML Vial ONE (09:41)
--- NOTE | 2021-06-05 09:41 | PCM.PRNOTE ---
- Free Text/Narrative Note: Date: 06/05/2021 Operation: laparoscopic cholecystectomy Indication: acute calculous cholecystitis Surgeon: Osmany Torres MD Findings: Detailed Report: The patient was taken to the operating room and placed on the table in supine position. Timeout was performed and general endotracheal anesthesia was initiated. The abdomen was prepped and draped in usual sterile fashion. A Veress needle was placed in the left upper quadrant in order to establish pneumoperitoneum. Once pressure reached 15 mmHg, air was aspirated just inferior to the umbilicus. A 5 mm bladed trocar was inserted inferior to the umbilicus and a laparoscope was inserted into the abdomen. Contents were inspected, and there appeared to be no inadvertent injury from Veress needle placement. This was removed under laparoscopic visualization, an additional 5 mm ports were placed at the right upper quadrant, 1 laterally for the trade sales assistant to retract the gallbladder and 1 more medially for the surgeon's left hand. The patient was positioned in reverse Trendelenburg and the fundus of the gallbladder was grasped and retracted cephalad. A 12 mm bladed trocar was inserted at the subxiphoid site for the surgeon's right hand. Dissection ensued, and cystic structures were identified and skeletonized. The cystic duct and cystic artery were cleared and a critical view of safety was obtained. Hemoclips were placed on the structures, with 2 to stay on the remnant cystic duct, and structures were transected with laparoscopic kyra. Hook monopolar energy was used to dissect the gallbladder off the liver and the specimen was placed in an Endo Catch bag and removed through the subxiphoid site. The dissection field appeared clean and dry. The 12 mm trocar was removed and fascia was closed with 0 Vicryl using a laparoscopic suture passer. Lateral ports were removed under laparoscopic visualization and hemostasis appeared satisfactory. Pneumoperitoneum was released and the final port was removed. All incisions were closed with running subcuticular absorbable suture. Wounds were dressed with Dermabond. A total of 30 cc 0.5% Marcaine was used for local anesthetic throughout the case. The patient tolerated the procedure well.
[2021-06-05] MEDS ORDERED: fentaNYL 250 MCG/5 ML SDV ONE (09:42)
[2021-06-05] MEDS ORDERED: Midazolam 1 MG/ML 2 ML SDV ONE (09:42)
[2021-06-05] MEDS ORDERED: Lidocaine 1% 4 ML ONE (09:46)
[2021-06-05] MEDS ORDERED: Bupivacaine 0.5% 30 ML SDV ONE (09:50)
[2021-06-05] MEDS ORDERED: HYDROmorphone 0.5 MG/0.5 ML Syringe ONE (10:46)
[2021-06-05] MEDS ORDERED: Ketorolac 30 MG/ML SDV ONE (11:23)
--- NOTE | 2021-06-05 11:52 | PCM.POSTAN ---
POST ANESTHESIA ASSESSMENT - MENTAL STATUS Mental Status: Alert, Oriented - VITAL SIGNS Vital Signs: Last Vital Signs Temp 36.2 C 06/05/21 11:41 Pulse 75 06/05/21 11:41 Resp 13 06/05/21 11:41 BP 119/72 06/05/21 11:41 Pulse Ox 100 06/05/21 11:41 - RESPIRATORY Respiratory Status: Respiratory Rate WNL, Airway Patent, O2 Saturation Stable, Supplemental Oxygen - CARDIOVASCULAR CV Status: Pulse Rate WNL, Blood Pressure Stable - GASTROINTESTINAL GI Status: No Symptoms - PAIN Pain Score: 0 - POST OP HYDRATION Hydration Status: Adequate & Stable - OBSERVATIONS Free Text/Narrative:: no anesthesia complications noted
[2021-06-05] MEDS ORDERED: fentaNYL 100 MCG/2 ML SDV IVPUSH PRN (11:53)
--- NOTE | 2021-06-05 11:53 | PCM.PRNOTE ---
- Free Text/Narrative Note: Date: 06/05/2021 Operation: laparoscopic cholecystectomy Indication: acute calculous cholecystitis Surgeon: Osmany Torres MD Findings: mild inflammatory change of gallbladder with thickened peritoneum and moderate edema. Critical view of safety obtained. Thin walled simple cystic lesion with straw colored fluid content noted, presumably adjacent to the common bile duct. This measured about 2 cm in greatest dimension. Detailed Report: The patient was taken to the operating room and placed on the table in supine position. Timeout was performed and general endotracheal anesthesia was initiated. The abdomen was prepped and draped in usual sterile fashion. A Veress needle was placed in the left upper quadrant in order to establish pneumoperitoneum. Once pressure reached 15 mmHg, air was aspirated just inferior to the umbilicus. A 5 mm bladed trocar was inserted inferior to the umbilicus and a laparoscope was inserted into the abdomen. Contents were inspected, and there appeared to be no inadvertent injury from Veress needle placement. This was removed under laparoscopic visualization, an additional 5 mm ports were placed at the right upper quadrant, 1 laterally for the certified pharmacist assistant to retract the gallbladder and 1 more medially for the surgeon's left hand. The gallbladder was mildly inflamed and edematous. The patient was positioned in reverse Trendelenburg and the fundus of the gallbladder was grasped and retracted cephalad. A 12 mm bladed trocar was inserted at the subxiphoid site for the surgeon's right hand. Dissection ensued, and cystic structures were identified and skeletonized. The duodenum was adherent to the medial aspect of the gallbladder body and was dissected free with hook monopolar device. Once the infundibulum was exposed, there was an apparent cystic lesion just posterior to the infundibulum. This was thin walled, simple appearing, not tense, with what appeared to be straw colored serous fluid contents. This was left alone. The cystic duct and cystic artery were cleared and a critical view of safety was obtained. Hemoclips were placed on the structures, with 2 to stay on the remnant cystic duct, and structures were transected with laparoscopic kyra. Hook monopolar energy was used to dissect the gallbladder off the liver and the specimen was placed in an Endo Catch bag and removed through the subxiphoid site. The dissection field appeared clean and dry. The 12 mm trocar was removed and fascia was closed with 0 Vicryl using a laparoscopic suture passer. Lateral ports were removed under laparoscopic visualization and hemostasis appeared satisfactory. Pneumoperitoneum was released and the final port was removed. All incisions were closed with running subcuticular absorbable suture. Wounds were dressed with Dermabond. A total of 30 cc 0.5% Marcaine was used for local anesthetic throughout the case. The patient tolerated the procedure well.
[2021-06-05] MEDS ORDERED: Haloperidol Lactate 5 MG/ML SDV IVPUSH STA (12:26)
--- NOTE | 2021-06-05 12:41 | PCM48HPAN ---
Post Anesthesia Note - EVALUATION WITHIN 48HRS OF ANESTHETIC Vital Signs in Normal Range: Yes Patient Participated in Evaluation: Yes Respiratory Function Stable: Yes Airway Patent: Yes Cardiovascular Function Stable: Yes Hydration Status Stable: Yes Pain Control Satisfactory: Yes Nausea and Vomiting Control Satisfactory: Yes (being treated) Mental Status Recovered: Yes Vital Signs: Last Vital Signs Temp 36.4 C 06/05/21 12:25 Pulse 86 06/05/21 12:25 Resp 16 06/05/21 12:25 BP 108/68 06/05/21 12:25 Pulse Ox 93 L 06/05/21 12:25 - COMMENTS/OBSERVATIONS Free Text/Narrative:: no anesthesia complications noted
[2021-06-05] MEDS ORDERED: Ondansetron 4 MG/2 ML SDV IVPUSH PRN (14:02)
[2021-06-05] MEDS ORDERED: Scopolamine 1.5 MG Transdermal Patch TRDERM ONE (14:03)
== END 2021-06-05 14:25 | disposition critical access hospital (66) ==
LOC: JD.SDS 00:01 → EDSTATUS 09:58 → JD.SDS 14:25
PROVIDERS: ATTEND Surgery
DX: K80.12 Calculus of gallbladder with acute and chronic cholecystitis without obstruction (principal); I48.91 Unspecified atrial fibrillation; J45.909 Unspecified asthma, uncomplicated; Z01.812 Encounter for preprocedural laboratory examination; Z20.822 Contact with and (suspected) exposure to COVID-19
CPT/HCPCS: 36415; 47562; 74177; 76705; 80053; 83690; 84703; 85025; 87635; 96365; 96375; 96376; 99285; A9270; J0696; J1170; J1630; J1885; J2250; J2405; J2704; J3010; J3490; J7030; J7120; 00790; U0002